=== PATIENT | male | born 1965 | race Caucasian/White ===

== ENCOUNTER 2019-11-17 07:18 | Day surgery (SDC) | payer BC ==
[2019-11-17] MEDS ORDERED: Propofol 200 MG/20 ML SDV ONE (07:23)
[2019-11-17] MEDS ORDERED: fentaNYL 100 MCG/2 ML SDV ONE (07:23)
[2019-11-17] MEDS ORDERED: Midazolam 1 MG/ML 2 ML SDV ONE (07:24)
[2019-11-17] MEDS ORDERED: Sodium Chloride 0.9% 1,000 ML IV SCH (08:00)
--- NOTE | 2019-11-17 11:26 | OR ---
DATE OF PROCEDURE: 11/17/2019 SURGEON: Dayron Wolfe MD PROCEDURE: Colonoscopy. FINDINGS: Diverticulosis, mild, mostly limited to sigmoid colon. COMPLICATIONS: None. CLINICAL LABORATORY SERVICE TEACHER: None. ANESTHESIA: MAC. PREOPERATIVE DIAGNOSIS: Screening colonoscopy. POSTOPERATIVE DIAGNOSIS: Screening colonoscopy. RISKS: Risks, benefits, alternatives, and limitations including, but not limited to infection, bleeding, and perforation were explained to the patient, who wished to proceed. PROCEDURE IN DETAIL: The patient was placed in left lateral decubitus position. Digital rectal exam was performed without abnormality. Scope was introduced and advanced atraumatically to the ileocecal valve. The scope was brought back through the ascending, transverse, descending colon, and retroflexed. No evidence of old or new blood. No masses. No polyps. Diverticulosis would be described as mild and limited to sigmoid colon, without evidence of diverticulitis or bleeding. The patient tolerated the procedure well. Dayron Wolfe MD /[id number]
== END 2019-11-17 11:00 | disposition home or self-care (01) ==
LOC: JP.SDS 07:18
PROVIDERS: ATTEND Surgery
DX: Z12.11 Encounter for screening for malignant neoplasm of colon (principal); K57.30 Diverticulosis of large intestine without perforation or abscess without bleeding; Z88.0 Allergy status to penicillin; Z88.1 Allergy status to other antibiotic agents
CPT/HCPCS: 45378; J2250; J2704; J3010; J7030